=== PATIENT | female | born 1985 | race Caucasian/White ===

== ENCOUNTER 2023-01-22 17:48 | Outpatient (CLI) | payer OTHER, SELFPAY ==
[2023-01-22 18:59] LABS: SARS-CoV-2 RNA PCR Negative (Negative)
== END 2023-01-22 17:49 | disposition home or self-care (01) ==
LOC: CHSLAB 17:58
DX: Z20.828 Contact with and (suspected) exposure to other viral communicable diseases (principal)
CPT/HCPCS: U0003; U0005